=== PATIENT | male | born 1990 | race Caucasian/White ===

== ENCOUNTER 2020-07-04 06:02 | Day surgery (SDC) | payer OTHER ==
[2020-07-03 12:17] VITALS: BMI 24.8
[2020-07-04] MEDS ORDERED: LIDOCAINE HCL 2% (20ML MULTI-DOSE VIAL) ONE (07:18)
[2020-07-04] MEDS ORDERED: BUPIVACAINE HCL/PF 0.25% (2.5MG/ML) 10 ML VIAL ONE (07:18)
[2020-07-04] MEDS ORDERED: MIDAZOLAM HCL 2 MG/2 ML SINGLE DOSE VIAL ONE (07:28)
[2020-07-04] MEDS ORDERED: SUCCINYLCHOLINE CHLORIDE 200 MG/10 ML SYRINGE ONE (07:28)
[2020-07-04] MEDS ORDERED: PROPOFOL 20 ML ONE ×2 (07:28)
[2020-07-04] MEDS ORDERED: ONDANSETRON 4 MG/2 ML VIAL ONE (07:29)
[2020-07-04] MEDS ORDERED: DEXAMETHASONE SOD PHOSPHATE 4 MG/1 ML VIAL ONE (07:29)
[2020-07-04] MEDS ORDERED: ceFAZolin SODIUM 1 GM VIAL ONE (07:29)
[2020-07-04] MEDS ORDERED: KETOROLAC TROMETHAMINE 30 MG/1 ML VIAL ONE (07:29)
[2020-07-04] MEDS ORDERED: BUPIVACAINE HCL/PF 0.25% (2.5MG/ML) 10 ML VIAL IJ ONE (08:55)
[2020-07-04 10:14] VITALS: TEMP 97.6
[2020-07-04 10:34] VITALS: PULSE 72
[2020-07-04] MEDS ORDERED: oxyCODONE HCL 5 MG TABLET PO PRN (10:50)
[2020-07-04] MEDS ORDERED: ONDANSETRON 4 MG/2 ML VIAL IVPUSH PRN (10:50)
[2020-07-04] MEDS ORDERED: LACTATED RINGERS SOLUTION 1,000 ML IV SCH (11:00)
[2020-07-04 11:16] VITALS: BP 128/72
== END 2020-07-04 11:30 | disposition home or self-care (01) ==
LOC: FASU 06:02
PROVIDERS: ATTEND Orthopaedic Surgery Hand Surgery
PROC: 0MQ80ZZ Repair Left Hand Bursa and Ligament, Open Approach (ICD-10-PCS; principal; 2020-07-04 08:01)
DX: S63.642A Sprain of metacarpophalangeal joint of left thumb, initial encounter (principal); X58.XXXA Exposure to other specified factors, initial encounter; Y92.9 Unspecified place or not applicable; Y93.9 Activity, unspecified
CPT/HCPCS: 26540; C1713; 94760